=== PATIENT | male | born 1960 | race Caucasian/White ===

== ENCOUNTER 2018-07-04 10:54 | Emergency (ER) | payer BC ==
[2018-07-04 11:13] VITALS: BP 177/100
--- NOTE | 2018-07-04 11:27 | UC ---
Back Pain HPI - HPI Summary HPI Summary: 57 yo with right low back pain. 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 He describes the pain as aching and sharp beginning in the upper right buttock and radiating down to the back of the right knee. He does not complain of any problems with urination or bowel movements. His circulation, motor and sensory are intact. Elevated BP noted. - History of Current Complaint Chief Complaint: UCBackPain Stated Complaint: BACK INJURY Time Seen by Provider: 07/04/18 11:24 Pain Intensity: 12 - Allergies/Home Medications Allergies/Adverse Reactions: Allergies Allergy/AdvReac Type Severity Reaction Status Date / Time No Known Allergies Allergy Verified 07/04/18 11:14 PMH/Surg Hx/FS Hx/Imm Hx - Additional Past Medical History Additional PMH: Patient has a history of hypertension. Previously Healthy: Yes Cardiovascular History: Hypertension - Surgical History Surgical History: None Surgery Procedure, Year, and Place: r knee - Family History Known Family History: Positive: Hypertension - Social History Occupation: Employed Full-time Alcohol Use: Rare Substance Use Type: None Smoking Status (MU): Never Smoked Tobacco Review of Systems All Other Systems Reviewed And Are Negative: Yes Constitutional: Positive: Negative Skin: Positive: Negative Eyes: Positive: Negative ENT: Positive: Negative Respiratory: Positive: Negative Cardiovascular: Positive: Negative Gastrointestinal: Positive: Negative Genitourinary: Positive: Negative Motor: Positive: Negative Neurovascular: Positive: Negative Musculoskeletal: Positive: Negative, Myalgia - right lower lumbar Neurological: Positive: Negative Psychological: Positive: Negative Physical Exam - Summary Physical Exam Summary: Appearance: The patient is spent over the exam table in significant discomfort. He points to the right lower lumbar upper buttock area as the origin of his pain. Eyes: Conjunctiva are clear. Pupils are equal and reactive to light and accommodation. Extra ocular muscle movement is intact. ENT: The hearing is grossly normal, the pharynx is normal, and the TMs are normal. There is no muffled or hoarse voice. No stridor. Neck: The neck is supple and there is no lymphadenopathy. Respiratory: The chest is nontender to palpation and without crepitus. The lungs are clear, there are normal breath sounds, and there is no respiratory distress. No wheezes, rales or rhonchi. Cardiovascular: Heart sounds reveal a regular rate and rhythm. There are no clicks, rubs or murmurs. There are no carotid bruits or thrills. Circulation is grossly intact. Abdomen: The abdomen is soft and nontender. There is no organomegaly. Bowel sounds are present and within normal limits. No point tenderness at McBurneys point. Musculoskeletal: Strength is intact. The patient moves all extremities. Decreased movement secondary to right lumbar pain. No decreased muscle function noted. Neurological: The patient is alert. Motor and sensory are examination grossly intact. Speech is normal. Psychological: The patient displays age appropriate behavior Skin: Negative for rashes. Vital Signs: Initial Vital Signs Temp 98 F 07/04/18 11:11 Pulse 110 07/04/18 11:11 Resp 20 07/04/18 11:11 BP 177/100 07/04/18 11:11 Pulse Ox 100 07/04/18 11:11 Back Pain Course/Dx - Course Course Of Treatment: 57-year-old with significant right lower lumbar discomfort. This is most consistent with a muscle strain but nerve impingement syndrome cannot be ruled out. There is no evident disability or perianal numbness. The patient was given 7 hydrocodone with acetaminophen, 7.5, and was instructed on using acetaminophen and ibuprofen as well as warm soaks and ice to area. He will follow-up with his own physician may choose future to have physical therapy or go to a chiropractor. He knows that his blood pressure is elevated. MEDICATIONS REVIEWED. HYPERTENSIVE STATUS REVIEWED. Reference #: [id number] - Differential Dx/Diagnosis Differential Diagnosis/HQI/PQRI: Herniated Disc, Strain, Sprain Provider Diagnosis: Lumbar back pain with radiculopathy affecting right lower extremity Discharge - Sign-Out/Discharge Documenting (check all that apply): Patient Departure All imaging exams completed and their final reports reviewed: No Studies - Discharge Plan Condition: Stable Disposition: HOME Prescriptions: Hydrocodone/Acetaminophen [Hydrocodone-Acetamin 7.5-300] 1 each PO QID #7 tablet MDD 3 Patient Education Materials: Low Back Strain (ED), Lower Back Exercises (ED) Referrals: Shelley Fields MD [Primary Care Provider] - Additional Instructions: WE DISCUSSED: PLEASE SEEK CARE AT THE EMERGENCY DEPARTMENT IF SYMPTOMS WORSEN OR IF NEW SYMPTOMS DEVELOP. FOLLOW UP WITH YOUR PRIMARY CARE PHYSICIAN IF CONDITION CONTINUES BEYOND 3 DAYS WITHOUT IMPROVEMENT. YOUR DIAGNOSIS IS: right low back strain YOUR PRESCRIPTION RECOMMENDATION IS: hydrocodone ALSO: TAKE IBUPROFEN 800MG PLUS ACETAMINOPHEN 1000MG TOGETHER UP TO 3 TIMES A DAY. DO NOT TAKE ACETAMINOPHEN IF YOU ARE TAKING THE HYDROCODONE. IT HAS ACETAMINOPHEN IN IT. OTHER INSTRUCTIONS: WARM MOIST HEAT IN THE MORNING TO BACK ALTERNATING [id number] ICE TO AREA FOR ACUTE PAIN. - Billing Disposition and Condition Condition: STABLE Disposition: Home
[2018-07-04] MEDS ORDERED: Ketorolac INJ* 30 MG/ML 1 ML VIAL IM ONE (11:42)
== END 2018-07-04 12:59 | disposition home or self-care (01) ==
LOC: UCEAST 10:54
DX: M54.16 Radiculopathy, lumbar region (principal); I10 Essential (primary) hypertension
CPT/HCPCS: 96372; 99212; G0463; J1885

== ENCOUNTER 2022-05-09 06:43 | Inpatient (IN) ==
[~2022-05-09 06:43] MED LIST: Buffered Lidocaine 1% SYRIN 1 ml INTRADERM ONE; Famotidine IV 10 MG/ML 2 ml VIAL (20 mg) IV ONE; Lactated Ringers 1000 ml BAG 1,000 ML IV SCH
[2022-05-09] MEDS ORDERED: ceFAZolin 2 GM PREMIX 2 GM/50 ML BAG ONE (07:39)
[2022-05-09] MEDS ORDERED: Famotidine IV 10 MG/ML 2 ml VIAL (20 mg) ONE (07:39)
[2022-05-09] MEDS ORDERED: fentaNYL 100 mcg/2 ml 50 MCG/ML VIAL ONE ×2 (08:26→09:21)
[2022-05-09] MEDS ORDERED: Midazolam 2 mg/2 ml VIAL 1 mg/ml 2 ml VIAL (2 mg) ONE (08:26)
[2022-05-09] MEDS ORDERED: ROPIVACAINE 5 MG/ML 30 ML BTL (0.5%) ONE (08:27)
[2022-05-09] MEDS ORDERED: Lidocaine 2% PF 5 ML VIAL ONE (08:27)
[2022-05-09] MEDS ORDERED: ceFAZolin 1 GM in Dextrose 1 GM/50 ML BAG ONE (08:33)
[2022-05-09] MEDS ORDERED: Ropivacaine 5 MG/ML 20 ML VIAL 0.5% (100 MG) ONE (08:47)
[2022-05-09] MEDS ORDERED: fentaNYL 100 mcg/2 ml 50 MCG/ML VIAL IV PRN (10:19)
[2022-05-09] MEDS ORDERED: Naloxone 0.4 mg VIAL 0.4 mg/ml 1 ml VIAL IV PRN (10:19)
[2022-05-09] MEDS ORDERED: Lactulose 30 ml UDC PO PRN (12:32)
[2022-05-09] MEDS ORDERED: Ondansetron 4 mg VIAL 2 MG/ML 2 ml VIAL IV PRN (12:32)
[2022-05-09] MEDS ORDERED: Magnesium Hydroxide LIQ 30 ML UDC PO PRN (12:32)
[2022-05-09] MEDS ORDERED: Ondansetron ODT 4 mg TAB 4 MG TAB PO PRN (12:32)
[2022-05-09] MEDS ORDERED: Morphine 2 MG/ML SYRINGE IV PRN (12:39)
[2022-05-09] MEDS: Lactated Ringers 1000 ml BAG 1,000 ML IV SCH ×2 (13:52→23:54)
[2022-05-09] MEDS: ceFAZolin 1 GM ADVAN 1 GM in NS 0.9% 50 ML 50 ML IVPB SCH (17:30)
[2022-05-09] MEDS: Magnesium Hydroxide LIQ 30 ML UDC PO SCH (21:18)
[2022-05-10] MEDS: ceFAZolin 1 GM ADVAN 1 GM in NS 0.9% 50 ML 50 ML IVPB SCH ×2 (02:50→09:46)
[2022-05-10 06:00] LABS: Hematocrit 39 % (42-52); Hemoglobin 13.5 g/dL (14.0-18.0); Mean Platelet Volume 9.3 fL (7.4-10.4); Platelet Count 169 10^3/uL (150-450)
[2022-05-10 06:21] LABS: Calcium 9.2 mg/dL (8.6-10.3); Potassium 4.8 mmol/L (3.5-5.0)
[2022-05-10 06:27] LABS: eGFR CKD-EPI 97.1 (>60)
[2022-05-10] MEDS: Magnesium Hydroxide LIQ 30 ML UDC PO SCH (07:53)
[2022-05-10] MEDS ORDERED: Vitamin THERAPEUTIC TAB PO SCH (09:00)
[2022-05-10 11:25] VITALS: BP 136/77
== END 2022-05-10 14:10 | disposition home or self-care (01) | DRG 302 ==
LOC: AA 06:43 → OBSVTOIN 06:43 → INTOOBSV 06:43 → SSU 13:54
PROVIDERS: ADMIT Orthopaedic Surgery Adult Reconstructive Orthopaedic Surgery; ATTEND Orthopaedic Surgery Adult Reconstructive Orthopaedic Surgery

== ENCOUNTER 2023-05-13 07:30 | Inpatient (IN) ==
[2023-05-15] MEDS ORDERED: HYDROcodone/ACETAMIN 5/325 mg TAB PO PRN (11:00)
[2023-05-15] MEDS ORDERED: Buffered Lidocaine 1% SYRIN 1 ml INTRADERM ONE (11:00)
[2023-05-15] MEDS ORDERED: Ondansetron 4 mg VIAL 2 MG/ML 2 ml VIAL IV PRN (11:00)
[2023-05-15] MEDS ORDERED: Lactated Ringers 1000 ml BAG 1,000 ML IV SCH (11:00)
[2023-05-15] MEDS ORDERED: Naloxone 0.4 mg VIAL 0.4 mg/ml 1 ml VIAL IV PRN (11:00)
[2023-05-15] MEDS ORDERED: Metoclopramide 5 MG/ML VIAL (10 mg) IV PRN (11:00)
[2023-05-15] MEDS ORDERED: fentaNYL 100 mcg/2 ml 50 MCG/ML VIAL IV PRN (11:00)
[2023-05-16] MEDS ORDERED: Ondansetron 4 mg VIAL 2 MG/ML 2 ml VIAL ONE (06:50)
[2023-05-16] MEDS ORDERED: Midazolam 2 mg/2 ml VIAL 1 mg/ml 2 ml VIAL (2 mg) ONE ×3 (06:50→08:44)
[2023-05-16] MEDS ORDERED: Dexamethasone IV 4 MG/ML VIAL 1 ml VIAL ONE ×2 (06:50→08:45)
[2023-05-16] MEDS ORDERED: Phenylephrine IV 10 MG/ML 1 ml VIAL ONE ×2 (06:50→06:52)
[2023-05-16] MEDS ORDERED: Lidocaine 2% PF 5 ML VIAL ONE (06:50)
[2023-05-16] MEDS ORDERED: Propofol 10 MG/ML 20 ML BTL ONE ×4 (06:50→11:51)
[2023-05-16] MEDS ORDERED: fentaNYL 100 mcg/2 ml 50 MCG/ML VIAL ONE ×3 (06:50→08:44)
[2023-05-16] MEDS ORDERED: Tranexamic Acid 1 GM/100ML BAG 2,000 MG/200 ML BAG IV ONE (07:45)
[2023-05-16] MEDS ORDERED: ceFAZolin *3* GM in NS PREMIX 3 GM/100 ML BAG IV ONE (07:45)
[2023-05-16] MEDS ORDERED: ROPIVACAINE 5 MG/ML 30 ML BTL (0.5%) ONE ×2 (07:52→08:44)
[2023-05-16 08:09] LABS: Rapid COVID-19 Molecular Undetected (Undetected)
[2023-05-16] MEDS ORDERED: Bupivacaine-MPF SPINAL 7.5 MG/ML - 2ML AMP ONE (09:51)
[2023-05-16] MEDS ORDERED: Sterile Water for Inj 10 ML ONE (09:51)
[2023-05-16] MEDS ORDERED: Ondansetron ODT 4 mg TAB 4 MG TAB PO PRN (10:43)
[2023-05-16] MEDS ORDERED: Lactulose 30 ml UDC PO PRN (10:43)
[2023-05-16] MEDS ORDERED: Ondansetron 4 mg VIAL 2 MG/ML 2 ml VIAL IV PRN (10:43)
[2023-05-16] MEDS ORDERED: Magnesium Hydroxide LIQ 30 ML UDC PO PRN (10:43)
[2023-05-16] MEDS ORDERED: Morphine 2 MG/ML SYRINGE IV PRN (10:43)
[2023-05-16] MEDS ORDERED: HYDROcodone/ACETAMIN 5/325 mg TAB ONE (13:04)
[2023-05-16] MEDS: Lactated Ringers 1000 ml BAG 1,000 ML IV SCH (13:57)
[2023-05-16] MEDS: ceFAZolin 1 GM ADVAN 1 GM in NS 0.9% 50 ML 50 ML IVPB SCH (17:07)
[2023-05-16] MEDS: Magnesium Hydroxide LIQ 30 ML UDC PO SCH (21:13)
[2023-05-16] MEDS: Multivitamins/Mins AREDS2 (NF) CAP PO SCH (21:19)
[2023-05-17] MEDS: Lactated Ringers 1000 ml BAG 1,000 ML IV SCH (00:32)
[2023-05-17] MEDS: ceFAZolin 1 GM ADVAN 1 GM in NS 0.9% 50 ML 50 ML IVPB SCH ×2 (02:17→10:31)
[2023-05-17 08:10] LABS: Platelet Count 187 10^3/uL (150-450)
[2023-05-17 08:26] LABS: Hematocrit 37.4 % (38-53); Hemoglobin 12.6 g/dL (13.2-16.3); Mean Platelet Volume 9.6 fL (7.5-11.2)
[2023-05-17 08:27] LABS: Calcium 8.9 mg/dL (8.6-10.3); Creatinine, Serum 0.89 mg/dL (0.67-1.17); Potassium 4.2 mmol/L (3.5-5.0); eGFR CKD-EPI 98.1 (>60)
[2023-05-17] MEDS ORDERED: Vitamin THERAPEUTIC TAB PO SCH (09:00)
[2023-05-17] MEDS: Magnesium Hydroxide LIQ 30 ML UDC PO SCH (10:29)
[2023-05-17] MEDS: Multivitamins/Mins AREDS2 (NF) CAP PO SCH (10:30)
[2023-05-17 11:07] VITALS: BP 127/72
== END 2023-05-17 13:20 | disposition home or self-care (01) | DRG 302 ==
LOC: INTOOBSV 05-16 07:22 → AA 05-16 07:22 → OBSVTOIN 05-16 07:22 → SSU 05-16 13:31
PROVIDERS: ADMIT Orthopaedic Surgery Adult Reconstructive Orthopaedic Surgery; ATTEND Orthopaedic Surgery Adult Reconstructive Orthopaedic Surgery